=== PATIENT | male | born 1970 | race Caucasian/White ===

== ENCOUNTER 2017-09-11 12:37 | Emergency (ER) | payer OTHER ==
[~2017-09-11] VITALS: Ht 182.8 cm; Wt 102.1 kg
[~2017-09-11 12:37] MED LIST: ADVAIR DISKUS 51 DSK IH; ANAPROX DS550 MG PO; ASPIRIN81 M1 PO; B12,B-12,B 12500 MC1 PO; CLEOCIN150 MG PO; KEFLEX500 MG PO; METFORMIN1000 MG PO; NAPROSYN500 MG PO; PRILOSEC20 MG PO; SPIRIVA18 MCG IH
[2017-09-11 14:30] LABS: BASO # 0.1 10*3/uL (0.0-0.1); BASO % 0.6 % (0.0-1.0); EOS # 0.1 10*3/uL (0.0-0.4); EOS % 1.1 % (1.0-4.0); HEMATOCRIT 44.2 % (42.0-52.0); HEMOGLOBIN 14.7 g/dl (14.0-18.0); LYMPH # 2.7 10*3/uL (1.3-4.4); LYMPH % 26.3 % (27.0-41.0); MEAN CORPUSCULAR HGB 28.6 pg (27.0-31.0); MEAN CORPUSCULAR HGB CONC 33.3 g/dl (33.0-37.0); MEAN PLATELET VOLUME 10.3 fl (9.6-12.3); MONO # 0.5 10*3/uL (0.1-1.0); MONO % 4.8 % (3.0-9.0); NEUT # 6.8 10*3/uL (2.3-7.9); NEUT % 66.9 % (47.0-73.0); PLATELET COUNT AUTOMATED 271 10*3/uL (130-400); RED BLOOD COUNT 5.14 10*6/uL (4.50-5.90); WHITE BLOOD COUNT 10.1 10*3/uL (4.8-10.8)
[2017-09-11 14:40] LABS: ACT PARTIAL THROMBO TIME 25.5 SECONDS (20.8-31.5)
[2017-09-11 14:47] LABS: ALBUMIN 3.7 gm/dl (3.1-4.5); ALKALINE PHOSPHATASE 76 U/L (45-117); BUN 14 mg/dl (7-24); CHLORIDE 103 mmol/L (98-107); LIPASE 163 U/L (73-393); POTASSIUM 4.3 mmol/L (3.5-5.1); SGOT/AST 21 IU/L (3-35); SGPT/ALT 34 U/L (12-78); SODIUM 138 mmol/L (136-145); TOTAL PROTEIN 7.6 gm/dL (6.4-8.2)
[2017-09-11 14:57] LABS: TROPONIN I < 0.015 ng/ml (<0.045)
[2017-09-11] MEDS ORDERED: PREDNISONE50 MG PO (15:12)
== END 2017-09-11 15:15 | disposition home or self-care (01) ==
LOC: ED 12:37
PROVIDERS: Nurse Practitioner Family
DX: G51.0 Bell's palsy (principal); R51 Headache; M54.2 Cervicalgia; H92.01 Otalgia, right ear; Z88.0 Allergy status to penicillin; Z79.82 Long term (current) use of aspirin; Z79.899 Other long term (current) drug therapy

== ENCOUNTER → 2020-02-10 | Outpatient (CLI) | payer OTHER ==
[~2020-02-10] MED LIST changes: +PREDNISONE50 MG PO
== END | disposition home or self-care (01) ==
LOC: US 02-06 14:30
DX: N43.2 Other hydrocele (principal); I86.1 Scrotal varices; L72.9 Follicular cyst of the skin and subcutaneous tissue, unspecified

== ENCOUNTER → 2020-03-26 | Outpatient (CLI) | payer OTHER | END | disposition home or self-care (01) | LOC: CT 02-25 11:00 | DX: K76.0 Fatty (change of) liver, not elsewhere classified (principal); N50.89 Other specified disorders of the male genital organs; K44.9 Diaphragmatic hernia without obstruction or gangrene ==

== ENCOUNTER 2020-04-03 01:17 | Emergency (ER) | payer OTHER ==
[~2020-04-03] VITALS: Ht 177.8 cm; Wt 119.7 kg
[2020-04-03] MEDS ORDERED: DIPHENHYDRAMINE50 M1 PO (04:21)
[2020-04-03] MEDS ORDERED: PREDNISONE10 MG PO (04:21)
== END 2020-04-03 04:33 | disposition home or self-care (01) ==
LOC: ED 01:17
DX: T78.3XXA Angioneurotic edema, initial encounter (principal); Z88.0 Allergy status to penicillin; Z79.899 Other long term (current) drug therapy; Z79.82 Long term (current) use of aspirin; Y92.89 Other specified places as the place of occurrence of the external cause

== ENCOUNTER 2021-02-07 18:27 | Emergency (ER) | payer OTHER ==
[~2021-02-07] VITALS: Ht 177.8 cm; Wt 121.6 kg
[~2021-02-07 18:27] MED LIST changes: +DIPHENHYDRAMINE50 M1 PO; +PREDNISONE10 MG PO
[2021-02-07 19:41] LABS: BASO % 0.3 % (0.0-1.0); EOS % 0.1 % (1.0-4.0); HEMATOCRIT 42.1 % (42.0-52.0); LYMPH # 1.6 10*3/uL (1.3-4.4); LYMPH % 19.8 % (27.0-41.0); MEAN CELL VOLUME 83.5 fl (80.0-94.0); MEAN CORPUSCULAR HGB 27.8 pg (27.0-31.0); MEAN CORPUSCULAR HGB CONC 33.3 g/dl (33.0-37.0); MONO # 0.6 10*3/uL (0.1-1.0); MONO % 7.1 % (3.0-9.0); NEUT # 5.7 10*3/uL (2.3-7.9); NEUT % 72.4 % (47.0-73.0); PLATELET COUNT AUTOMATED 214 10*3/uL (130-400); RED BLOOD COUNT 5.04 10*6/uL (4.50-5.90); RED CELL DISTRI WIDTH 14.4 % (0-14.5); WHITE BLOOD COUNT 7.9 10*3/uL (4.8-10.8)
[2021-02-07 20:00] LABS: ALKALINE PHOSPHATASE 91 U/L (45-117); BUN 13 mg/dl (7-24); CHLORIDE 103 mmol/L (98-107); CREATININE 1.13 mg/dL (0.70-1.30); POTASSIUM 3.4 mmol/L (3.5-5.1); SGOT/AST 32 IU/L (3-35); SGPT/ALT 44 U/L (12-78); SODIUM 135 mmol/L (136-145); TOTAL PROTEIN 7.5 gm/dL (6.4-8.2)
[2021-02-07 20:01] LABS: TROPONIN I < 0.015 ng/ml (<0.045)
[2021-02-07] MEDS ORDERED: ZITHROMAX250 MG PO (23:58)
== END 2021-02-08 00:21 | disposition home or self-care (01) ==
LOC: ED 18:27
PROVIDERS: Emergency Medicine
DX: J44.1 Chronic obstructive pulmonary disease with (acute) exacerbation (principal); G62.9 Polyneuropathy, unspecified; M79.662 Pain in left lower leg; Z88.0 Allergy status to penicillin; Z79.899 Other long term (current) drug therapy; Z79.82 Long term (current) use of aspirin

== ENCOUNTER → 2021-10-26 | Outpatient (CLI) | payer OTHER ==
[~2021-10-26] MED LIST changes: +ZITHROMAX250 MG PO
[2021-10-26 09:00] LABS: BILIRUBIN Negative (Negative); BLOOD Negative (Negative); CLARITY Clear (Clear); COLOR Yellow (Yellow); GLUCOSE 3+ (Negative); KETONE Negative (Negative); LEUKO ESTERASE Negative (Negative); NITRITE Negative (Negative); PH 6.5 (4.5-8.0); SPECIFIC GRAVITY 1.025 (1.001-1.030)
[2021-10-26 09:16] LABS: ALKALINE PHOSPHATASE 106 U/L (45-117); BUN 15 mg/dl (7-24); CHOLESTEROL 139 mg/dL (<200); CREATININE 1.35 mg/dL (0.70-1.30); LDL CHOLESTEROL 54 mg/dL (9-159); SGOT/AST 19 IU/L (3-35); SGPT/ALT 36 U/L (12-78); TOTAL PROTEIN 7.7 gm/dL (6.4-8.2); TRIGLYCERIDES 255 mg/dl (<150)
[2021-10-26 09:32] LABS: CHLORIDE 106 mmol/L (98-107); SODIUM 135 mmol/L (136-145)
[2021-10-26 10:56] LABS: EPITHELIAL CELLS 0-2
== END | disposition home or self-care (01) ==
LOC: LAB 08:08
PROVIDERS: ATTEND Internal Medicine
DX: E11.65 Type 2 diabetes mellitus with hyperglycemia (principal); E55.9 Vitamin D deficiency, unspecified; E78.5 Hyperlipidemia, unspecified

== ENCOUNTER 2023-08-11 20:56 | Emergency (ER) | payer OTHER ==
[~2023-08-11] VITALS: Ht 177.8 cm; Wt 120.7 kg
[2023-08-11 21:19] LABS: BASO % 0.2 % (0.0-1.0); EOS # 0.2 10*3/uL (0.0-0.4); EOS % 1.4 % (1.0-4.0); LYMPH # 2.1 10*3/uL (1.3-4.4); LYMPH % 18.5 % (27.0-41.0); MEAN CELL VOLUME 86.1 fl (80.0-94.0); MEAN CORPUSCULAR HGB 27.3 pg (27.0-31.0); MEAN CORPUSCULAR HGB CONC 31.7 g/dl (33.0-37.0); MEAN PLATELET VOLUME 10.3 fl (9.6-12.3); MONO # 0.7 10*3/uL (0.1-1.0); MONO % 5.9 % (3.0-9.0); NEUT # 8.3 10*3/uL (2.3-7.9); NEUT % 72.7 % (47.0-73.0); PLATELET COUNT AUTOMATED 303 10*3/uL (130-400); RED BLOOD COUNT 4.76 10*6/uL (4.50-5.90); RED CELL DISTRI WIDTH 14.1 % (0-14.5); WHITE BLOOD COUNT 11.5 10*3/uL (4.8-10.8)
[2023-08-11 21:33] LABS: ACT PARTIAL THROMBO TIME 29.5 SECONDS (20.0-32.1)
[2023-08-11 21:37] LABS: ALKALINE PHOSPHATASE 125 U/L (46-116); BUN 10 mg/dl (9-23); CHLORIDE 104 mmol/L (98-107); LIPASE 62 U/L (12-53); POTASSIUM 4.3 mmol/L (3.4-5.1); SGPT/ALT 10 U/L (5-49); TOTAL PROTEIN 7.4 gm/dL (6.0-8.0)
[2023-08-11] MEDS ORDERED: PREDNISONE20 M1 PO (22:14)
[2023-08-11] MEDS ORDERED: VIBRAMYCIN100 MG PO (22:14)
== END 2023-08-11 22:24 | disposition home or self-care (01) ==
LOC: ED 20:56
PROVIDERS: Internal Medicine
DX: J18.9 Pneumonia, unspecified organism (principal); J44.9 Chronic obstructive pulmonary disease, unspecified; K21.9 Gastro-esophageal reflux disease without esophagitis; E11.9 Type 2 diabetes mellitus without complications; E78.00 Pure hypercholesterolemia, unspecified; Z88.0 Allergy status to penicillin; Z98.890 Other specified postprocedural states; F17.210 Nicotine dependence, cigarettes, uncomplicated; Z53.29 Procedure and treatment not carried out because of patient's decision for other reasons

== ENCOUNTER 2023-12-20 18:04 | Emergency (ER) | payer OTHER ==
[~2023-12-20] VITALS: Wt 120.2 kg
[~2023-12-20 18:04] MED LIST changes: +PREDNISONE20 M1 PO; +VIBRAMYCIN100 MG PO
[2023-12-20] MEDS ORDERED: ACETAMINOPHEN 325 MG TAB PO ONE (18:40)
[2023-12-20 18:53] LABS: BASO # 0.1 10*3/uL (0.0-0.1); BASO % 0.4 % (0.0-1.0); EOS # 0.1 10*3/uL (0.0-0.4); EOS % 0.9 % (1.0-4.0); HEMATOCRIT 45.4 % (42.0-52.0); LYMPH # 2.6 10*3/uL (1.3-4.4); LYMPH % 22.9 % (27.0-41.0); MEAN CORPUSCULAR HGB 27.7 pg (27.0-31.0); MEAN CORPUSCULAR HGB CONC 32.2 g/dl (33.0-37.0); MONO # 0.6 10*3/uL (0.1-1.0); MONO % 5.1 % (3.0-9.0); NEUT # 7.9 10*3/uL (2.3-7.9); NEUT % 70.5 % (47.0-73.0); PLATELET COUNT AUTOMATED 251 10*3/uL (130-400); RED BLOOD COUNT 5.28 10*6/uL (4.50-5.90); RED CELL DISTRI WIDTH 14.4 % (0-14.5); WHITE BLOOD COUNT 11.2 10*3/uL (4.8-10.8)
[2023-12-20] MEDS ORDERED: LISINOPRIL5 MG PO (19:03)
[2023-12-20] MEDS ORDERED: GABAPENTIN400 MG PO (19:03)
[2023-12-20] MEDS ORDERED: ATORVASTATIN CA20 M1 PO (19:03)
[2023-12-20] MEDS ORDERED: GLIMEPIRIDE4 M1 PO (19:03)
[2023-12-20 19:14] LABS: ALKALINE PHOSPHATASE 104 U/L (46-116); BUN 13 mg/dl (9-23); CHLORIDE 105 mmol/L (98-107); POTASSIUM 3.6 mmol/L (3.4-5.1); SGPT/ALT 22 U/L (5-49); TOTAL PROTEIN 7.2 gm/dL (6.0-8.0)
[2023-12-20] MEDS ORDERED: IOHEXOL 350 MG/ML 100 ML VIAL IV ONE ×2 (19:45→20:01)
[2023-12-20] MEDS ORDERED: SODIUM CHLORIDE 0.9% 100 ML BAG IV ONE (19:45)
[2023-12-20] MEDS ORDERED: SODIUM CHLORIDE 0.9% 100 ML IV ONE (20:00)
== END 2023-12-20 22:34 | disposition home or self-care (01) ==
LOC: ED 18:04
PROVIDERS: Physician Assistant Medical
DX: M79.605 Pain in left leg (principal); I10 Essential (primary) hypertension; J44.9 Chronic obstructive pulmonary disease, unspecified; K21.9 Gastro-esophageal reflux disease without esophagitis; E78.00 Pure hypercholesterolemia, unspecified; E11.40 Type 2 diabetes mellitus with diabetic neuropathy, unspecified; F17.200 Nicotine dependence, unspecified, uncomplicated; Z88.0 Allergy status to penicillin; Z98.890 Other specified postprocedural states

== ENCOUNTER 2024-01-26 19:35 | Emergency (ER) | payer OTHER ==
[~2024-01-26] VITALS: Ht 177.8 cm; Wt 120.2 kg
[~2024-01-26 19:35] MED LIST changes: +ATORVASTATIN CA20 M1 PO; +GABAPENTIN400 MG PO; +GLIMEPIRIDE4 M1 PO; +LISINOPRIL5 MG PO
[2024-01-26] MEDS ORDERED: Ketorolac Tromethamine 60 MG/2 ML VIAL IM ONE (20:20)
[2024-01-26] MEDS ORDERED: Dexamethasone Sodium Phospha 20 MG/5 ML VIAL IM ONE (20:20)
[2024-01-26] MEDS ORDERED: LIDOCAINE 1 EA PATCH T ONE (23:15)
[2024-01-26] MEDS ORDERED: LIDOCAINE PAIN1 EACH T (23:20)
[2024-01-26] MEDS ORDERED: CYCLOBENZAPRINE5 M3 PO (23:20)
[2024-01-26] MEDS ORDERED: MELOXICAM15 MG PO (23:20)
== END 2024-01-26 23:29 | disposition home or self-care (01) ==
LOC: ED 19:35
DX: M62.830 Muscle spasm of back (principal); J44.9 Chronic obstructive pulmonary disease, unspecified; K21.9 Gastro-esophageal reflux disease without esophagitis; E11.9 Type 2 diabetes mellitus without complications; E78.00 Pure hypercholesterolemia, unspecified; Z88.0 Allergy status to penicillin; Z98.890 Other specified postprocedural states; Z87.891 Personal history of nicotine dependence